=== PATIENT | male | born 2000 | race Caucasian/White ===

== ENCOUNTER 2019-02-16 06:46 | Emergency (ER) | payer OTHER, MEDICAID, SELFPAY ==
[2019-02-16 07:15] VITALS: BP 142/78; PULSE 97; RESP 18; TEMP 36.8; O2SAT 99; BMI 24.7
--- NOTE | 2019-02-16 07:41 | ED.URI ---
HPI - URI/Sore Throat General Chief Complaint: Upper Respiratory Symptoms Stated Complaint: bad cough several days, vomiting, shivers, migrain Time Seen by Provider: 02/16/19 07:40 Source: patient Mode of arrival: Family Vehicle Limitations: no limitations History of Present Illness HPI Narrative: This is a 18-year-old male who comes to the emergency department with complaint of subjective fevers and chills for 12 hours, cough for 3-4 days which he states is productive with greenish yellow sputum patient states that he does feel like sometimes gets a little chest pain up on the right side particularly when he is coughing. Patient states that sometimes it feels like it is a little bit hard to breathe. Patient states he has also been throwing up overnight 3 or 4 times. He also has developed a headache/migraine. Patient states that he has had migraines in the past but not frequently. He denies any changes to bowel movements, no issues with urination. No rashes or skin changes. He is not aware of any sick contacts. He denies any medical issues, states he has had a remote hernia repair, no allergies to medications other than penicillin. States that he smokes several times yearly, occasional alcohol and denies illicit. Related Data Allergies Allergy/AdvReac Type Severity Reaction Status Date / Time Penicillins Allergy Hives Verified 02/16/19 07:25 Review of Systems Review of Systems ROS Unobtainable: All systems reviewed & are unremarkable except as noted in HPI and below Constitutional Constitutional: Reports body ache(s), Reports chills, Reports fever(s), Reports headache(s), Denies lethargy and Denies weakness Eyes Eyes: Denies change in vision ENT Ears, Nose, Mouth, and Throat: Reports headache(s), Reports nasal congestion and Reports sore throat Cardiovascular Cardiovascular: Reports chest pain, Denies edema, Denies irregular heart rhythm, Denies lightheadedness, Denies palpitations, Reports dyspnea, Denies dyspnea on exertion and Denies orthopnea Respiratory Respiratory: Reports change in phlegm color, Reports chest congestion, Reports cough, Denies hemoptysis, Reports excessive phlegm production, Denies pain on inspiration, Reports pain with cough, Reports dyspnea, Denies dyspnea on exertion and Denies wheezing Gastrointestinal Gastrointestinal: Denies abdominal pain, Denies change in bowel habits, Denies constipation, Denies diarrhea, Denies nausea and Reports vomiting (3-4x overnight) Genitourinary Genitourinary: Denies hematuria, Denies difficulty urinating, Denies dysuria, Denies flank pain, Denies urinary frequency, Denies urinary incontinence and Denies urinary urgency Musculoskeletal Musculoskeletal: Denies back pain and Denies muscle weakness Integumentary/Breasts Skin/Breast: Denies rash Neurologic Neurologic: Reports headache(s) and Denies weakness Endocrine Endocrine: Denies palpitations Allergic/Immunologic Allergic/Immunologic: Denies wheezing Patient History Social History Smoking Status: Current some day smoker tobacco type: cigarettes alcohol intake frequency: 0-2 drinks per day Substance Use Type: does not use Exam Narrative Exam Narrative: GEN: well nourished, well appearing male, alert and oriented x 3, patient appears to be in mild distress. HEENT: Atraumatic, pupils are equal round reactive to light, extraocular movements are intact, nares minimal clear, TMs are clear with no fluid. Throat is clear without any exudates, erythema, tonsillar enlargement or uvular deviation, no muffled or hoarse voice. HEART: Regular rate and rhythm without murmur, clicks, rubs. LUNGS:Lungs clear to auscultation, no wheezes, rales, crackles, chest moves symmetrically, no tachypnea, no accessory muscle use. ABD:bowel sounds normal, soft, non-tender, no guarding, rebound, rigidity, no masses noted, no hepatosplenomegaly :No CVA tenderness MSCL: Non-tender, no muscle atrophy, muscles strength 5/5 upper and lower extremities, full range of motion, normal gait NEURO:CN 2-12 intact, sensation normal SKIN: No rash, no petechiae, no erythema. Initial Vital Signs Initial Vital Signs: Vital Signs Temperature 98.2 F 02/16/19 07:15 Pulse Rate 97 H 02/16/19 07:15 Respiratory Rate 18 02/16/19 07:15 Blood Pressure 142/78 H 02/16/19 07:15 Pulse Oximetry 99 02/16/19 07:15 Course Orders Ordered: Discontinued Medications Ibuprofen (Advil) 800 mg PO NOW ONE Stop: 02/16/19 07:48 Last Admin: 02/16/19 08:02 Dose: 800 mg Documented by: FRANKLIN Vital Signs Vital signs: Vital Signs - 8 hr 02/16/19 07:15 Temperature 98.2 F Pulse Rate 97 H Respiratory Rate 18 Blood Pressure 142/78 H Pulse Oximetry 99 MDM - URI/Sore Throat Lab Data Attestation: I reviewed the patient's lab results. Labs: Lab Results 02/16/19 Range/Units 07:50 Influenza A & B (PCR) Negative (Negative) Imaging Data Chest x-ray: Radiologist's impression: [address] [address] XRay Report Signed Patient: Kristian GarciaMR#: [id number] : 2000Acct:[id number] Age/Sex: 18 / MDate of Service: 02/16/19 Loc: ED Accession Number: [id number] Procedure: XR chest 2V Ordering Provider: Zaina Vargas D.O. PROCEDURE: XR CHEST 2V INDICATIONS: cough, chest pain, sob, fever/chills TECHNIQUE: 2 views of the chest were acquired. COMPARISON: None. FINDINGS: Surgical changes and devices: None. Lungs and pleura: Lungs are clear. No pleural effusions or pneumothorax. Mediastinum: Mediastinal contours are normal. Heart size is normal. Bones and chest wall: No suspicious bony abnormalities. Soft tissues appear unremarkable. IMPRESSION: No acute pulmonary process. Dictated by: Cristela Fregoso M.D. on 02/16/2019 at 8:12 Approved by: Cristela Fregoso M.D. on 02/16/2019 at 8:12 Discharge Plan Departure Patient Disposition: Home Clinical Impression: Upper respiratory infection Qualifiers: URI type: unspecified URI Qualified Code(s): J06.9 - Acute upper respiratory infection, unspecified Discharge Date/Time: 02/16/19 08:33 Instructions: DI for Viral Upper Respiratory Infection -- Adult Activity Restrictions/Additional Instructions: Follow-up with primary care in the next 5-7 days if your symptoms are not resolving. You may take ibuprofen up to 800 mg every 8 hours as needed for headache, you may take Tylenol up to a 1000 mg every 8 hours as needed for headache. Make sure you are drinking plenty of fluids. Return to the emergency department for fevers greater 100.4 F, rapidly worsening headache, persistent vomiting, passing out, persistent vomiting, black or bloody stools, new abdominal or chest pain or other new or concerning symptoms.
--- NOTE | 2019-02-16 07:47 | DI.RAD.S_ITS ---
PROCEDURE: XR CHEST 2V INDICATIONS: cough, chest pain, sob, fever/chills TECHNIQUE: 2 views of the chest were acquired. COMPARISON: None. FINDINGS: Surgical changes and devices: None. Lungs and pleura: Lungs are clear. No pleural effusions or pneumothorax. Mediastinum: Mediastinal contours are normal. Heart size is normal. Bones and chest wall: No suspicious bony abnormalities. Soft tissues appear unremarkable. IMPRESSION: No acute pulmonary process. Dictated by: Cristela Fregoso M.D. on 02/16/2019 at 8:12 Approved by: Cristela Fregoso M.D. on 02/16/2019 at 8:12
[2019-02-16] MEDS: IBUPROFEN 400 MG TABLET 800 MG PO (08:02)
[2019-02-16 08:11] LABS: Influenza A and B by PCR Rapid Negative (Negative)
== END 2019-02-16 08:33 | disposition home or self-care (01) ==
PROVIDERS: Emergency Provider Emergency Medicine
DX: J06.9 Acute upper respiratory infection, unspecified (principal); R05 Cough; R07.9 Chest pain, unspecified; R06.02 Shortness of breath
CPT/HCPCS: 71046; 87502; 99282; 99283